=== PATIENT | male | born 1970 | race Hispanic/Latino ===

== ENCOUNTER 2016-07-17 01:17 | Emergency (ER) ==
--- NOTE | 2016-07-17 01:24 | PROVIDER DOCUMENTATION ---
HPI-Work Related Injury - General Source: patient, EMS <RonyDestini faye WagnerSboeida - Last Filed: 07/17/16 02:16> <Thiago Mckeon - Last Filed: 07/17/16 03:05> - General Chief Complaint: Head Injury Stated Complaint: Fall w LOC Time Seen by Provider: 07/17/16 01:10 Allergies/Adverse Reactions: Patient Allergies Allergy/AdvReac Type Severity Reaction Status Date / Time No Known Allergies Allergy Verified 07/17/16 01:21 Home Medications: Home Medication List Medication Instructions Recorded Confirmed Last Taken Type No Home Medications 07/17/16 07/17/16 Unknown History - History of Present Illness-Work Injury Nature of PresentingProblem: 46 y/o M presents to ED with c/o head injury with unknown LOC s/p fall from 8 foot ladder. Pt states was working at [employer] when he fell on the floor. Denies any dizziness prior to fall. Pt states no LOC, but other workers report LOC approx. 5 minutes. EMS reports that pt c/o pain and knot to L scalp with vomiting during transport; pt given zofran and vomiting ceased. Denies any other pain. (Destini Uribe) Review of Systems - Adult - REVIEW OF SYSTEMS - ADULT Constitutional: reports: no symptoms reported. denies: chills, fever Eyes: reports: no symptoms reported. denies: blurred vision, double vision Ears, Nose, Mouth & Throat: reports: no symptoms reported. denies: ear pain, nose pain Cardiovascular: reports: no symptoms reported. denies: chest pain, palpitations Respiratory: reports: no symptoms reported. denies: dyspnea on exertion, shortness of breath Gastrointestinal: reports: see HPI, vomiting. denies: abdominal pain Genitourinary: reports: no symptoms reported. denies: dysuria, frequency Musculoskeletal: reports: see HPI, neck pain. denies: back pain, joint pain, joint swelling Integumentary: reports: no symptoms reported. denies: nail changes, rash Neurological: reports: see HPI, headache/migraines. denies: numbness, paresthesia Psychiatric: reports: no symptoms reported Endocrine: reports: no symptoms reported. denies: cold intolerance, heat intolerance Hematologic/Lymphatic: reports: no symptoms reported. denies: easy bruising, prolonged bleeding Allergic/Immunologic: reports: no symptoms reported All Other Systems: Reviewed and Negative <RonyGabe prabhakarine A. - Last Filed: 07/17/16 02:16> Past History - Adult - PAST MEDICAL HISTORY-ADULT Review of Records: reports: Nursing Assessment Review, Medications Reviewed <RonyDestini A. - Last Filed: 07/17/16 02:16> Physical Exam-Injury Related - Physical Exam-Injury Related Initial Vital Signs Reviewed: Yes General Appearance: alert, mild distress Eyes: PERRL/EOMI, pink conjunctivae. negative: EOM palsy Head, Ears, Nose, Mouth & Throat: normocephalic/atraumatic, moist mucous membranes Neck: C-spine tenderness Respiratory: chest non-tender, lungs clear, normal breath sounds. negative: crackles, rales, rhonchi, stridor Cardiovascular: regular rate, rhythm. negative: bradycardia, tachycardia Abdominal Exam: normal bowel sounds, non tender, soft. negative: distended, guarding, rigid, rebound Back Exam: normal inspection, no vertebral tenderness Extremity: normal gait, normal inspection. negative: abnormal NV exam Integumentary: normal color, warm/dry Neurologic: negative: aphasia Psych/Mental Status: normal mood/affect, normal thought content, normal thought process, oriented x 3 <Gabe Uribeine A. - Last Filed: 07/17/16 02:16> Progress - CHANGE OF SHIFT REPORT (ED Provider) Report Given and Care Transferred to:: Dr. Mckay Time of Transfer: 02:17 Items Pending: XRAY Results, CT/MRI Results Tentative Impression of Patient: intracranial bleed <Gabe Uribeine A. - Last Filed: 07/17/16 02:16> - CT/MRI 1 CT Study: Head CT Results: LARGE SAH. SMALL BILATERAL CONTUSION OF FRONTAL LOBES <Thiago Mckeon - Last Filed: 07/17/16 03:05> Attestation - Physician/ TERECNE Attestation Patient care was provided by Advanced Practice Provider:: Yes Advanced Practice Provider:: Destini Uribe Advanced Practice Provider documentation review:: The Mid-level provider documentation, treatment plan and medical decision making was reviewed by the physician who agrees with all treatment and medical decision making by the P. <Destini Uribe - Last Filed: 07/17/16 02:16> Physician Attestation
[2016-07-17 02:41] LABS: MANUAL DIFF NEEDED? NO
[2016-07-17 02:46] LABS: BASO% 0.2 % (0.0-0.8); EOS% 0.6 % (0.0-10.0); HEMATOCRIT 37.2 % (42.0-52.0); HEMOGLOBIN 12.9 g/dL (14.0-18.0); IMM GRAN# 0.14 X1000 (0.0-0.04); IMM GRAN% 0.9 % (0.0-0.5); LYMPH# 2.15 X1000 (1.2-3.4); MCH 29.5 PG (27-31); MCHC 34.7 g/dL (33-37); MCV 85.1 FL (81-99); MONO# 0.56 X1000 (0.11-0.59); MONO% 3.6 % (1.7-9.3); MPV 11.5 FL (7.4-10.4); NEUT% 80.7 % (42.2-75.2); PLT 149 X1000 (130-400); RBC 4.37 XMIL (4.7-6.1)
[2016-07-17] MEDS ORDERED: ZOFRAN ONE (03:01)
[2016-07-17] MEDS ORDERED: ZOFRAN IV ONE (03:07)
[2016-07-17] MEDS ORDERED: NS 1,000 ML IV PRN (03:13)
[2016-07-17] MEDS ORDERED: NS 1,000 ML ONE (03:13)
[2016-07-17 03:18] LABS: AGAP 13; ALBUMIN 3.9 g/dL (3.5-5.0); ALKALINE PHOSPHATASE 114 U/L (32-122); BUN 19 mg/dL (8-22); CALCIUM 8.5 mg/dL (8.8-10.2); CHLORIDE 102 mmol/L (98-107); COSMO 276; GOT 32 U/L (10-34); GPT 25 U/L (10-44); POTASSIUM 3.6 mmol/L (3.5-5.1); SODIUM 135 mmol/L (136-145); TCO2 20 mmol/L (25-35); TOTAL PROTEIN 6.9 g/dL (6.3-8.3)
[2016-07-17] MEDS ORDERED: SODIUM CHLORIDE 0.9% INJ ONE (03:56)
[2016-07-17] MEDS ORDERED: PHENERGAN IV ONE (03:56)
[2016-07-17] MEDS ORDERED: PHENERGAN ONE (03:57)
[2016-07-17 04:14] VITALS: BP 127/82
--- NOTE | 2016-07-17 08:36 | Diag Imaging Result Document ---
PROCEDURE NAME: HEAD/C-SPINE W/O CONTRAST - 07/17/2016 CT OF THE HEAD WITHOUT CONTRAST: FINDINGS: There is extensive subarachnoid bleeding around the sella and basilar cisterns extending into the perimesencephalic cistern on the left and the anterior interhemispheric fissure. There may be some bleeding within the falx as well both superiorly and anteriorly. There is some fluid in some of the right ethmoid air cells. The middle ear structures are clear. There is persistence of the metopic suture. The calvarium appears to be intact. There is a scalp hematoma posteriorly over the right parietal bone. No evidence of hydrocephalus. There may be some effacement of the sulci bilaterally particularly in the frontal lobes. There is no appreciable shift of midline structures. No evidence of intraventricular blood. The presence of parenchymal contusion in the frontal lobes and in the area around the right sylvian fissure cannot be entirely excluded. IMPRESSION: Intracerebral bleed primarily in the subarachnoid space but possibly also including parenchymal contusion and intrafalcine hematoma. Scalp hematoma. Presumably these findings are all due to trauma to the head. The possibility of a ruptured intracerebral aneurysm cannot be excluded however. CT OF THE CERVICAL SPINE: FINDINGS: There is no evidence of acute fracture or subluxation. Prevertebral soft-tissue swelling is present. IMPRESSION: No evidence of acute bony abnormality. [facility]
--- NOTE | 2016-07-17 09:09 | Diag Imaging Result Document ---
PROCEDURE NAME: T-SPINE/L-SPINE W/O CONTRAST - 07/17/2016 CT OF THE THORACIC SPINE: FINDINGS: There is some motion artifact particularly in the upper portion of the thoracic spine. There is a compression fracture of the upper endplate of L1. There are mild degenerative changes in the thoracic spine. Fracture or subluxation is present in the thoracic spine. IMPRESSION: Compression fracture of L1. CT OF THE LUMBAR SPINE: FINDINGS: There is a compression fracture of the upper endplate of L1. There is no apparent retropulsion of fragments into the canal. The remainder of the lumbar spine is intact. IMPRESSION: Uncomplicated compression fracture of the upper endplate of L1.
--- NOTE | 2016-07-17 09:11 | Diag Imaging Result Document ---
PROCEDURE NAME: FLAT/UPRIGHT ABD/1 VIEW CHEST - 07/17/2016 FLAT AND UPRIGHT ABDOMEN: FINDINGS: There is a fairly large amount of stool present in the hepatic flexure of the colon. The stomach is not distended. There is no evidence of small-bowel dilatation, organomegaly or mass. There are numerous granulomata in the lungs. IMPRESSION: Constipation. AP CHEST: FINDINGS: The heart size and pulmonary vascularity are within normal limits. There are numerous calcified granulomata. There is no evidence of pneumothorax or pleural fluid collection. IMPRESSION: No acute disease.
== END 2016-07-17 04:12 | disposition short-term general hospital (02) ==
LOC: P.ED 01:17
DX: S06.6X0A Traumatic subarachnoid hemorrhage without loss of consciousness, initial encounter (principal); S32.010A Wedge compression fracture of first lumbar vertebra, initial encounter for closed fracture; R51 Headache; R22.0 Localized swelling, mass and lump, head; R11.10 Vomiting, unspecified; M54.2 Cervicalgia; W11.XXXA Fall on and from ladder, initial encounter
CPT/HCPCS: 70450; 72125; 72128; 72131; 74022; 80053; 85025; 96361; 96374; 96375; J2405; J2550; J7030